=== PATIENT | male | born 1975 | race Caucasian/White ===

== ENCOUNTER 2018-06-26 20:45 | Inpatient (IN) ==
[2018-06-26 21:22] LABS: Bilirubin,Urine Negative (Negative); Blood,Urine Negative (Negative); Clarity,Urine Clear (Clear); Color,Urine Yellow (Yellow); Glucose,Urine (UA) Normal (Normal); Ketones,Urine Negative (Negative); Leukocyte Esterase,Urine Negative (Negative); Nitrite,Urine Negative (Negative); Protein,Urine Negative (Neg-Trace); Specific Gravity,Urine 1.005 (1.010-1.025); Urobilinogen,Urine Normal (Normal)
[2018-06-26 21:22] LABS: Basophils % 0.5 %; Eosinophils # 0.1 K/mcL (0.0-0.6); Eosinophils % 0.8 %; Hematocrit 43.5 % (37.5-50.1); Hemoglobin 14.3 g/dL (12.9-16.9); Immature Granulocytes % 0.4 % (0-4); Lymphocytes # 1.8 K/mcL (0.6-4.6); Lymphocytes % 22.9 %; Mean Corpuscular HGB Conc 32.9 g/dL (31.6-35.5); Mean Corpuscular Hemoglobin 31.2 pg (28.0-33.3); Mean Corpuscular Volume 94.8 fL (83.0-100.0); Mean Platelet Volume 9.7 fL (9.4-12.4); Monocytes # 0.6 K/mcL (0.0-1.3); Monocytes % 7.8 %; Neutrophils # 5.3 K/mcL (1.6-8.9); Platelet Count 221 K/mcL (140-400); Red Blood Count 4.59 M/mcL (4.19-5.50); Red Cell Distribution Width 13.2 % (11.5-14.5); Segmented Neutrophils % 67.6 %
--- NOTE | 2018-06-26 21:24 | Emergency Department Note ---
Disposition Clinical Impression: Suicidal ideation Disposition: Admitted As Inpatient Condition: Good Referrals: NONE,PCP [Primary Care Provider] - Forms: ED Satisfaction Letter Psych HPI - General Chief Complaint: ED Psychiatric Symptoms Stated Complaint: SI Time Seen by Provider: 06/26/18 20:47 Source: patient, EMS Mode of arrival: EMS Limitations: no limitations Nursing Notes Reviewed: Yes Vital Signs Reviewed: Yes - History of Present Illness HPI Narrative: 43-year-old male history of anxiety, depression presents for suicidal ideation. Reports he was here earlier today and lied to the psychiatric nurse that evaluated him and that he felt like taking his life. He states he left here and then decided life was not worth living. States that he has tried to kill himself before by ingesting Tylenol. He denies any ingestion currently. He reports being anxious and depressed. Denies any auditory or visual hallucinations. Denies any alcohol or drug use. Pt complaint: suicidal ideation Onset (ago): day(s) Duration: intermittent History of similar episodes: Yes Improves with: none Worsens with: none Context: significant life stressor Alleged intoxication: No Associated Psychiatric Symptoms: depression, suicidal ideation Traumatic symptoms: denies traumatic injury Treatments prior to arrival: none Self harm or harm to others: admits thoughts of self harm, has plan - Related Data Home Medications Medication Instructions Recorded Confirmed Atorvastatin [Lipitor] 10 mg PO HS 06/26/18 06/26/18 Brexpiprazole [Rexulti] 1 mg PO DAILY 06/26/18 06/26/18 Cholecalciferol (D-3) [Vitamin D] 1,000 units PO DAILY 06/26/18 06/26/18 Desvenlafaxine Fumarate 50 mg PO DAILY 06/26/18 06/26/18 [Desvenlafaxine Fumarate ER] Dextroamphetamine/Amphetamine 1 tab PO DAILY 06/26/18 06/26/18 [Adderall Xr 20 mg Capsule] Xanax 1 MG Tablet 1 mg PO TID 06/26/18 06/26/18 Previous Rx's Medication Instructions Recorded Albuterol Sulfate [Albuterol 0 puff IH Q6HR #1 hfa.aer.ad 06/16/18 Inhaler] Allergies Allergy/AdvReac Type Severity Reaction Status Date / Time AVOIDS IV DYE AdvReac Nausea Uncoded 06/26/18 14:28 All systems ED: reviewed and negative except as stated. Psychiatric: Reports: anxiety, depression, suicidal thoughts. Denies: homicidal thoughts, auditory hallucinations, visual hallucinations Past Medical History - Past Medical History Attestation: Yes The following information was validated with the patient. Source: patient Medical history: Reports: arthritis, cancer, GERD, migraine, renal disease Surgical history: Reports: appendectomy, cancer surgery, herniorrhaphy, other Psychiatric history: Reports: anxiety, ADHD, bipolar, depression, panic disorder, prior suicide attempt, other - Social History Smoking Status: Current every day smoker Smokeless Tobacco Status: No Alcohol use: Reports: none Drug use: Reports: none Physical Exam - General Limitations: no limitations General appearance: alert, in no apparent distress - Head Head exam: atraumatic, normocephalic, normal inspection - Eye Eye exam: Present: normal appearance - ENT ENT exam: normal exam - Neck Neck exam: Present: normal inspection - Chest Chest inspection: Present: normal inspection, symmetric chest wall rise - Respiratory Respiratory exam: Present: normal lung sounds bilaterally - Cardiovascular Cardiovascular exam: Present: regular rate, normal rhythm, normal heart sounds - Abdominal Exam Abdominal exam: Present: soft, Non-Tender. Absent: tenderness, distention, rigidity - Extremities Exam Extremities exam: Present: normal inspection, full ROM - Expanded Upper Extremity Exam Shoulder exam: Present: normal inspection, full ROM Arm exam: Present: normal inspection, full ROM Elbow exam: Present: normal inspection, full ROM Forearm/Wrist exam: Present: normal inspection, full ROM Hand exam: Present: normal inspection, full ROM - Expanded Lower Extremity Exam Hip/Pelvis exam: Present: normal inspection, full ROM Upper leg exam: Present: normal inspection, full ROM Knee exam: Present: normal inspection, full ROM Lower leg exam: Present: normal inspection, full ROM Ankle exam: Present: normal inspection, full ROM Foot/toe exam: Present: normal inspection, full ROM - Psychiatric Psychiatric exam: Present: depressed, suicidal ideation - Skin Skin exam: Present: warm, dry Course Course Narrative: Patient seen and examined. Vital signs reviewed. Plan for medical clearance for psychiatric evaluation. - Reevaluation(s) Reevaluation #1: Patient is medically cleared awaiting psychiatric evaluation. Time: 21:50 Vital Signs Temperature 98.5 F 06/26/18 20:48 Pulse Rate 83 06/26/18 20:48 Respiratory Rate 18 06/26/18 20:48 Blood Pressure 139/87 06/26/18 20:48 O2 Sat by Pulse Oximetry 99 06/26/18 20:48 Temperature 98.5 F 06/26/18 20:48 Pulse Rate 83 06/26/18 20:48 Respiratory Rate 18 06/26/18 20:48 Blood Pressure 139/87 06/26/18 20:48 O2 Sat by Pulse Oximetry 99 06/26/18 20:48 Oxygen Delivery Oxygen Delivery Room Air Psych - MDM Narrative Medical decision making narrative: 43-year-old male presenting due to suicidal ideation. Patient was evaluated earlier today. He was medically cleared and evaluated by psychiatry. He will be admitted to the psychiatric service at this time. - Lab Data Lab results reviewed: Yes I reviewed the patient's lab results. Result diagrams: 06/26/18 21:06 06/26/18 21:06 Lab Results 06/26/18 06/26/18 06/26/18 Range/Units 21:05 21:05 21:06 WBC 7.8 (4.3-11.1) K/mcL RBC 4.59 (4.19-5.50) M/mcL Hgb 14.3 (12.9-16.9) g/dL Hct 43.5 (37.5-50.1) % MCV 94.8 (83.0-100.0) fL MCH 31.2 (28.0-33.3) pg MCHC 32.9 (31.6-35.5) g/dL RDW 13.2 (11.5-14.5) % Plt Count 221 (140-400) K/mcL MPV 9.7 (9.4-12.4) fL Immature Gran % 0.4 (0-4) % Seg Neutrophils % 67.6 % Lymphocytes % 22.9 % Monocytes % 7.8 % Eosinophils % 0.8 % Basophils % 0.5 % Neutrophils # 5.3 (1.6-8.9) K/mcL Lymphocytes # 1.8 (0.6-4.6) K/mcL Monocytes # 0.6 (0.0-1.3) K/mcL Eosinophils # 0.1 (0.0-0.6) K/mcL Basophils # 0.0 (0.0-0.2) K/mcL Sodium (136-145) mEq/L Potassium (3.5-5.1) mEq/L Chloride (98-107) mEq/L Carbon Dioxide (23-29) mEq/L BUN (6-20) mg/dL Creatinine (0.70-1.30) mg/dL Est GFR ( Amer) (> 60) Est GFR (Non-Af Amer) (> 60) BUN/Creatinine Ratio (6-26) Glucose (70-105) mg/dL Calculated Osmolality (280-300) Calcium (8.6-10.3) mg/dL Urine Color Yellow (Yellow) Urine Clarity Clear (Clear) Urine pH 6.0 (5.0-8.0) pH Units Ur Specific [place] 1.005 L (1.010-1.025) Urine Protein Negative (Neg-Trace) mg/dL Urine Glucose (UA) Normal (Normal) mg/dL Urine Ketones Negative (Negative) mg/dL Urine Blood Negative (Negative) Urine Nitrite Negative (Negative) Urine Bilirubin Negative (Negative) Urine Urobilinogen Normal (Normal) mg/dL Ur Leukocyte Esterase Negative (Negative) Salicylates (15.0-30.0) mg/dL Urine Opiates Screen Negative (Kzsltu=665) ng/mL Acetaminophen (10-20) mcg/mL Ur Barbiturates Screen Negative (Ijpmdf=653) ng/mL Ur Phencyclidine Scrn Negative (Cutoff=25) ng/mL Ur Amphetamines Screen Negative (Fjibvg=7801) ng/mL U Benzodiazepines Scrn Negative (Vninzy=588) ng/mL Urine Cocaine Screen Negative (Cutoff= 300) ng/mL U Marijuana (THC) Screen Negative (Cutoff = 50) ng/mL Ur Drug Screen Interp See Below Ethyl Alcohol (Less than 10) mg/dL 06/26/18 Range/Units 21:06 WBC (4.3-11.1) K/mcL RBC (4.19-5.50) M/mcL Hgb (12.9-16.9) g/dL Hct (37.5-50.1) % MCV (83.0-100.0) fL MCH (28.0-33.3) pg MCHC (31.6-35.5) g/dL RDW (11.5-14.5) % Plt Count (140-400) K/mcL MPV (9.4-12.4) fL Immature Gran % (0-4) % Seg Neutrophils % % Lymphocytes % % Monocytes % % Eosinophils % % Basophils % % Neutrophils # (1.6-8.9) K/mcL Lymphocytes # (0.6-4.6) K/mcL Monocytes # (0.0-1.3) K/mcL Eosinophils # (0.0-0.6) K/mcL Basophils # (0.0-0.2) K/mcL Sodium 139 (136-145) mEq/L Potassium 3.7 (3.5-5.1) mEq/L Chloride 104 (98-107) mEq/L Carbon Dioxide 28 (23-29) mEq/L BUN 15 (6-20) mg/dL Creatinine 1.12 (0.70-1.30) mg/dL Est GFR ( Amer) > 60 (> 60) Est GFR (Non-Af Amer) > 60 (> 60) BUN/Creatinine Ratio 13 (6-26) Glucose 98 (70-105) mg/dL Calculated Osmolality 289 (280-300) Calcium 9.3 (8.6-10.3) mg/dL Urine Color (Yellow) Urine Clarity (Clear) Urine pH (5.0-8.0) pH Units Ur Specific [place] (1.010-1.025) Urine Protein (Neg-Trace) mg/dL Urine Glucose (UA) (Normal) mg/dL Urine Ketones (Negative) mg/dL Urine Blood (Negative) Urine Nitrite (Negative) Urine Bilirubin (Negative) Urine Urobilinogen (Normal) mg/dL Ur Leukocyte Esterase (Negative) Salicylates < 2.5 L (15.0-30.0) mg/dL Urine Opiates Screen (Zbvfqz=054) ng/mL Acetaminophen < 10 L (10-20) mcg/mL Ur Barbiturates Screen (Icesfz=393) ng/mL Ur Phencyclidine Scrn (Cutoff=25) ng/mL Ur Amphetamines Screen (Vjhskl=4965) ng/mL U Benzodiazepines Scrn (Vtyhae=133) ng/mL Urine Cocaine Screen (Cutoff= 300) ng/mL U Marijuana (THC) Screen (Cutoff = 50) ng/mL Ur Drug Screen Interp Ethyl Alcohol < 10 (Less than 10) mg/dL Psychiatric Medical Clearance - Medical Clearance Checklist Medical History: No Social History Section defined Current Vitals: Last Vital Signs Temp 98.5 F 06/26/18 20:48 Pulse 83 06/26/18 20:48 Resp 18 06/26/18 20:48 BP 139/87 06/26/18 20:48 Pulse Ox 99 06/26/18 20:48 Psychiatric Lab Panel: Drug Levels and Toxicity 06/26/18 06/26/18 21:05 21:06 Urine Opiates Screen Negative Acetaminophen < 10 L Ur Barbiturates Screen Negative Ur Phencyclidine Scrn Negative Ur Amphetamines Screen Negative U Benzodiazepines Scrn Negative Urine Cocaine Screen Negative U Marijuana (THC) Screen Negative Ethyl Alcohol < 10 Abnormal Labs: Abnormal lab results Ur Specific [place] 1.005 (1.010-1.025) L 06/26/18 21:05 Salicylates < 2.5 mg/dL (15.0-30.0) L 06/26/18 21:06 Acetaminophen < 10 mcg/mL (10-20) L 06/26/18 21:06 Statement of Medical Clearance: I have evaluated the patient, reviewed diagnostic information, and certify that the patient's medical condition is sufficiently stable that transfer to the psychiatric unit does not pose a significant risk of deterioration.
[2018-06-26 21:42] LABS: Acetaminophen < 10 mcg/mL (10-20); BUN/Creatinine Ratio 13 (6-26); Blood Urea Nitrogen 15 mg/dL (6-20); Calcium 9.3 mg/dL (8.6-10.3); Carbon Dioxide 28 mEq/L (23-29); Chloride 104 mEq/L (98-107); Ethanol < 10 mg/dL (Less than 10); Glucose 98 mg/dL (70-105); Osmolality,Calculated 289 (280-300); Potassium 3.7 mEq/L (3.5-5.1); Salicylate < 2.5 mg/dL (15.0-30.0); Sodium 139 mEq/L (136-145); eGFR For Non-African Americans > 60 (> 60)
[2018-06-26 21:43] LABS: Amphetamine Screen,Urine Negative ng/mL (Cutoff=1000); Barbiturate Screen,Urine Negative ng/mL (Cutoff=200); Benzodiazepines Screen,Urine Negative ng/mL (Cutoff=200); Cannabinoid Screen,Urine Negative ng/mL (Cutoff = 50); Cocaine Screen,Urine Negative ng/mL (Cutoff= 300); Opiate Screen,Urine Negative ng/mL (Cutoff=300); Phencyclidine Screen,Urine Negative ng/mL (Cutoff=25)
--- NOTE | 2018-06-26 21:51 | Emergency Department Note ---
Disposition Clinical Impression: Suicidal ideation Disposition: Still a Patient Referrals: NONE,PCP [Primary Care Provider] - Forms: ED Satisfaction Letter General Adult HPI - General Chief complaint: ED Psychiatric Symptoms Stated complaint: SI Time Seen by Provider: 06/26/18 20:47 Source: patient, EMS Mode of arrival: EMS Limitations: no limitations - History of Present Illness Pain Scale: 0 - Related Data Home Medications Medication Instructions Recorded Confirmed Atorvastatin [Lipitor] 10 mg PO HS 06/26/18 06/26/18 Brexpiprazole [Rexulti] 1 mg PO DAILY 06/26/18 06/26/18 Cholecalciferol (D-3) [Vitamin D] 1,000 units PO DAILY 06/26/18 06/26/18 Desvenlafaxine Fumarate 50 mg PO DAILY 06/26/18 06/26/18 [Desvenlafaxine Fumarate ER] Dextroamphetamine/Amphetamine 1 tab PO DAILY 06/26/18 06/26/18 [Adderall Xr 20 mg Capsule] Xanax 1 MG Tablet 1 mg PO TID 06/26/18 06/26/18 Previous Rx's Medication Instructions Recorded Albuterol Sulfate [Albuterol 0 puff IH Q6HR #1 hfa.aer.ad 06/16/18 Inhaler] Allergies Allergy/AdvReac Type Severity Reaction Status Date / Time AVOIDS IV DYE AdvReac Nausea Uncoded 06/26/18 14:28 Psychiatric: Reports: anxiety, depression, suicidal thoughts. Denies: homicidal thoughts, auditory hallucinations, visual hallucinations Past Medical History - Past Medical History Medical history: Reports: arthritis, cancer, GERD, migraine, renal disease Surgical history: Reports: appendectomy, cancer surgery, herniorrhaphy, other Psychiatric history: Reports: anxiety, ADHD, bipolar, depression, panic disorder, prior suicide attempt, other - Social History Smoking Status: Current every day smoker Smokeless Tobacco Status: No Alcohol use: Reports: none Drug use: Reports: none Physical Exam - General Limitations: no limitations General appearance: alert, in no apparent distress Course Vital Signs Temperature 98.5 F 06/26/18 20:48 Pulse Rate 83 06/26/18 20:48 Respiratory Rate 18 06/26/18 20:48 Blood Pressure 139/87 06/26/18 20:48 O2 Sat by Pulse Oximetry 99 06/26/18 20:48 Temperature 98.5 F 06/26/18 20:48 Pulse Rate 83 06/26/18 20:48 Respiratory Rate 18 06/26/18 20:48 Blood Pressure 139/87 06/26/18 20:48 O2 Sat by Pulse Oximetry 99 06/26/18 20:48 Oxygen Delivery Oxygen Delivery Room Air Medical Decision Making - Lab Data Result diagrams: 06/26/18 21:06 06/26/18 21:06 Lab Results 06/26/18 06/26/18 06/26/18 Range/Units 21:05 21:05 21:06 WBC 7.8 (4.3-11.1) K/mcL RBC 4.59 (4.19-5.50) M/mcL Hgb 14.3 (12.9-16.9) g/dL Hct 43.5 (37.5-50.1) % MCV 94.8 (83.0-100.0) fL MCH 31.2 (28.0-33.3) pg MCHC 32.9 (31.6-35.5) g/dL RDW 13.2 (11.5-14.5) % Plt Count 221 (140-400) K/mcL MPV 9.7 (9.4-12.4) fL Immature Gran % 0.4 (0-4) % Seg Neutrophils % 67.6 % Lymphocytes % 22.9 % Monocytes % 7.8 % Eosinophils % 0.8 % Basophils % 0.5 % Neutrophils # 5.3 (1.6-8.9) K/mcL Lymphocytes # 1.8 (0.6-4.6) K/mcL Monocytes # 0.6 (0.0-1.3) K/mcL Eosinophils # 0.1 (0.0-0.6) K/mcL Basophils # 0.0 (0.0-0.2) K/mcL Sodium (136-145) mEq/L Potassium (3.5-5.1) mEq/L Chloride (98-107) mEq/L Carbon Dioxide (23-29) mEq/L BUN (6-20) mg/dL Creatinine (0.70-1.30) mg/dL Est GFR ( Amer) (> 60) Est GFR (Non-Af Amer) (> 60) BUN/Creatinine Ratio (6-26) Glucose (70-105) mg/dL Calculated Osmolality (280-300) Calcium (8.6-10.3) mg/dL Urine Color Yellow (Yellow) Urine Clarity Clear (Clear) Urine pH 6.0 (5.0-8.0) pH Units Ur Specific [place] 1.005 L (1.010-1.025) Urine Protein Negative (Neg-Trace) mg/dL Urine Glucose (UA) Normal (Normal) mg/dL Urine Ketones Negative (Negative) mg/dL Urine Blood Negative (Negative) Urine Nitrite Negative (Negative) Urine Bilirubin Negative (Negative) Urine Urobilinogen Normal (Normal) mg/dL Ur Leukocyte Esterase Negative (Negative) Salicylates (15.0-30.0) mg/dL Urine Opiates Screen Negative (Mijnam=777) ng/mL Acetaminophen (10-20) mcg/mL Ur Barbiturates Screen Negative (Kkwroq=026) ng/mL Ur Phencyclidine Scrn Negative (Cutoff=25) ng/mL Ur Amphetamines Screen Negative (Vtcqbo=5523) ng/mL U Benzodiazepines Scrn Negative (Drakxa=782) ng/mL Urine Cocaine Screen Negative (Cutoff= 300) ng/mL U Marijuana (THC) Screen Negative (Cutoff = 50) ng/mL Ur Drug Screen Interp See Below Ethyl Alcohol (Less than 10) mg/dL 06/26/18 Range/Units 21:06 WBC (4.3-11.1) K/mcL RBC (4.19-5.50) M/mcL Hgb (12.9-16.9) g/dL Hct (37.5-50.1) % MCV (83.0-100.0) fL MCH (28.0-33.3) pg MCHC (31.6-35.5) g/dL RDW (11.5-14.5) % Plt Count (140-400) K/mcL MPV (9.4-12.4) fL Immature Gran % (0-4) % Seg Neutrophils % % Lymphocytes % % Monocytes % % Eosinophils % % Basophils % % Neutrophils # (1.6-8.9) K/mcL Lymphocytes # (0.6-4.6) K/mcL Monocytes # (0.0-1.3) K/mcL Eosinophils # (0.0-0.6) K/mcL Basophils # (0.0-0.2) K/mcL Sodium 139 (136-145) mEq/L Potassium 3.7 (3.5-5.1) mEq/L Chloride 104 (98-107) mEq/L Carbon Dioxide 28 (23-29) mEq/L BUN 15 (6-20) mg/dL Creatinine 1.12 (0.70-1.30) mg/dL Est GFR ( Amer) > 60 (> 60) Est GFR (Non-Af Amer) > 60 (> 60) BUN/Creatinine Ratio 13 (6-26) Glucose 98 (70-105) mg/dL Calculated Osmolality 289 (280-300) Calcium 9.3 (8.6-10.3) mg/dL Urine Color (Yellow) Urine Clarity (Clear) Urine pH (5.0-8.0) pH Units Ur Specific [place] (1.010-1.025) Urine Protein (Neg-Trace) mg/dL Urine Glucose (UA) (Normal) mg/dL Urine Ketones (Negative) mg/dL Urine Blood (Negative) Urine Nitrite (Negative) Urine Bilirubin (Negative) Urine Urobilinogen (Normal) mg/dL Ur Leukocyte Esterase (Negative) Salicylates < 2.5 L (15.0-30.0) mg/dL Urine Opiates Screen (Fppsse=921) ng/mL Acetaminophen < 10 L (10-20) mcg/mL Ur Barbiturates Screen (Jqvafv=105) ng/mL Ur Phencyclidine Scrn (Cutoff=25) ng/mL Ur Amphetamines Screen (Bwczkg=7158) ng/mL U Benzodiazepines Scrn (Gwewgy=294) ng/mL Urine Cocaine Screen (Cutoff= 300) ng/mL U Marijuana (THC) Screen (Cutoff = 50) ng/mL Ur Drug Screen Interp Ethyl Alcohol < 10 (Less than 10) mg/dL Attestation Statement - Attestation Attestation: I examined this patient and my medical decision-making was reviewed with the Resident Physician. I agree with the documented findings, disposition and treatment plan as described except to the extent set forth below. 43 year old male presents to the ED with complaints of SI and was initially evlauted about 6 hours ago of which he was cleared. Patinet state he was lying when he spoke to 1A earlier and really does want to take his own life now and has overdosed on tylenol with 120 tablets in the past but states he has not done that today. He has his bags packed at bedside expecting to stay. Medically cleared, 1A pending
[2018-06-26] MEDS ORDERED: *HR* LORazepam 1 MG TABLET PO PRN (23:40)
[2018-06-26] MEDS ORDERED: Mag Hydrox/Al Hydrox/Simeth 30 ML UDC PO PRN (23:40)
[2018-06-26] MEDS ORDERED: *HR* LORazepam 2 MG/ML VIAL IM PRN (23:40)
[2018-06-26] MEDS ORDERED: MOM Conc 10 ML UD.LIQ PO PRN (23:40)
[2018-06-26] MEDS ORDERED: Haloperidol Lactate 5 MG/ML VIAL IM PRN (23:40)
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
[2018-06-27] MEDS ORDERED: clonazePAM 1 MG TABLET PO PRN (10:16)
[2018-06-27] MEDS: Cholecalciferol (D-3) 1,000 UNIT TABLET PO SCH (11:40)
[2018-06-27] MEDS: BREXPIPRAZOLE 1 MG PO SCH (11:40)
[2018-06-27] MEDS: DESVENLAFAXINE 50 MG PO SCH (11:40)
[2018-06-27] MEDS: traZODone 50 MG TABLET PO PRN (20:35)
[2018-06-28] MEDS: Cholecalciferol (D-3) 1,000 UNIT TABLET PO SCH (09:15)
[2018-06-28] MEDS: BREXPIPRAZOLE 1 MG PO SCH (09:16)
[2018-06-28] MEDS: DESVENLAFAXINE 50 MG PO SCH (09:17)
[2018-06-28] MEDS: Ibuprofen 400 MG TABLET PO PRN (10:53)
--- NOTE | 2018-06-28 10:57 | Psychiatry Progress Note ---
Date of Encounter: 06/28/18 Time of Encounter: 10:51 Subjective Interval history: Client states his mood is starting to improve. Spent much of yesterday sleeping and still feels tired today. However, he did attend a group yesterday and has already gone to a group this morning. Eating well. Tolerating the antidepressants without side effects. Noncommittal as to whether he is still experiencing SI. "When I'm busy and around people I don't have it." States he is happy he came to the hospital "so I didn't do anything stupid." However, feels like he may not need an inpatient level of care much longer. Willing to go wherever staff find him housing but wants to stay in the area since his providers are here. Already linked with services. Likely discharge this week. Review of Systems Constitutional: Denies: fever, chills, weakness, weight change Eyes: Denies: eye pain, vision change Ears, Nose, Throat: Denies: ear pain, throat pain, dental pain, hearing loss, congestion Cardiovascular: Denies: chest pain, palpitations, dyspnea on exertion Respiratory: Denies: cough, dyspnea, wheezes Gastrointestinal: Denies: abdominal pain, nausea, vomiting, diarrhea, constipation Musculoskeletal: Denies: joint swelling, joint pain Neurological: Denies: headache, weakness, numbness, memory loss Psychiatric: Reports: depression, anxiety, abnormal sleep pattern, suicidal ideation, change in appetite, anhedonia, difficulty concentrating, hopelessness. Denies: homicidal ideation, auditory hallucinations, visual hallucinations, confusion, memory loss Results - Vital Signs Vital Signs: Temp Pulse Resp BP Pulse Ox 98.7 F 99 18 126/74 97 06/28/18 09:00 06/28/18 09:00 06/28/18 09:00 06/28/18 09:00 06/28/18 09:00 Assessment and Plan (1) Bipolar 2 disorder, major depressive episode Current visit: Yes Status: Chronic Plan: Continue hospitalization, Close observation, Suicide Precautions per unit protocol, Encourage participation in unit milieu, Group Therapy, Monitor sleep, Monitor appetite Risks, benefits, side effects, alternatives discussed w/pt: Yes Patient agreeable to treatment: Yes Consult Discharge Plan - Plan Referrals: [facility] [Outside] Psychiatry Exam - Constitutional Vitals: Temp Pulse Resp BP Pulse Ox 98.7 F 99 18 126/74 97 06/28/18 09:00 06/28/18 09:00 06/28/18 09:00 06/28/18 09:00 06/28/18 09:00 General appearance: disheveled - Musculoskeletal Gait: normal Station: relaxed Strength & Tone: normal for patient - Psychiatric Patient Orientation: Yes Person, Yes Time, Yes Place Level of alertness: Alert Behavior: calm, cooperative Psychomotor activity: Normal Eye Contact: Maintains Eye Contact Mood Description: Depressed Affect description: full range Speech Volume: Normal Speech pattern: normal rate, normal rhythm, normal tone, fluent, spontaneous Language & Vocabulary: consistent with education Thought Process: Linear Thought Content: Yes Suicidal ideation, No Homicidal ideation, No Overt delusions Perceptual Disturbances: No Auditory hallucinations, No Visual hallucinations Attention Span Ability: Capable of Focused Attention Memory Description: Grossly Intact Patient Reliability: Reliable Historian Fund of knowledge: Yes abstraction ability, Yes aware of current events Intelligence Estimate: Average Judgment: Fair Insight: Partial
[2018-06-28] MEDS: hydrOXYzine pamoate 25 MG CAPSULE PO PRN (21:12)
[2018-06-28] MEDS: traZODone 50 MG TABLET PO PRN (21:13)
[2018-06-29] MEDS: Cholecalciferol (D-3) 1,000 UNIT TABLET PO SCH (08:50)
[2018-06-29] MEDS: BREXPIPRAZOLE 1 MG PO SCH (08:50)
[2018-06-29] MEDS: DESVENLAFAXINE 50 MG PO SCH (08:51)
--- NOTE | 2018-06-29 12:01 | Psychiatry Progress Note ---
Date of Encounter: 06/29/18 Time of Encounter: 11:58 Subjective Interval history: Client states he is feeling down today as it is the anniversary of his mother's . Still has some fleeting SI but understands it takes time for the medications to work. States he is tired and that the antidepressants make him sleepy. Discussed how Vistaril and Trazodone are the more likely culprits and he will attempt to use these prns less to see if he feels more alert. Seems happy to be in the hospital. Discussed discharge planning. Will hopefully be evaluated by [facility]. Client states he was kicked out of staying here for bringing his prescription benzodiazepines onto the property but willing to go back if they will accept him. Review of Systems Constitutional: Denies: fever, chills, weakness, weight change Eyes: Denies: eye pain, vision change Ears, Nose, Throat: Denies: ear pain, throat pain, dental pain, hearing loss, congestion Cardiovascular: Denies: chest pain, palpitations, dyspnea on exertion Respiratory: Denies: cough, dyspnea, wheezes Gastrointestinal: Denies: abdominal pain, nausea, vomiting, diarrhea, constipation Musculoskeletal: Denies: joint swelling, joint pain Neurological: Denies: headache, weakness, numbness, memory loss Psychiatric: Reports: depression, anxiety, abnormal sleep pattern, suicidal ideation, change in appetite, anhedonia, difficulty concentrating, hopelessness. Denies: homicidal ideation, auditory hallucinations, visual hallucinations, confusion, memory loss Results - Vital Signs Vital Signs: Temp Pulse Resp BP Pulse Ox 98.1 F 89 20 130/72 96 06/29/18 09:00 06/29/18 09:00 06/29/18 09:00 06/29/18 09:00 06/28/18 21:00 Assessment and Plan (1) Bipolar 2 disorder, major depressive episode Current visit: Yes Status: Chronic Plan: Continue hospitalization, Close observation, Suicide Precautions per unit protocol, Encourage participation in unit milieu, Group Therapy, Monitor sleep, Monitor appetite Risks, benefits, side effects, alternatives discussed w/pt: Yes Patient agreeable to treatment: Yes Consult Discharge Plan - Plan Referrals: [facility] [Outside] Psychiatry Exam - Constitutional Vitals: Temp Pulse Resp BP Pulse Ox 98.1 F 89 20 130/72 96 06/29/18 09:00 06/29/18 09:00 06/29/18 09:00 06/29/18 09:00 06/28/18 21:00 General appearance: age & developmentally appropriate, well-groomed, well- nourished - Musculoskeletal Gait: normal Station: relaxed Strength & Tone: normal for patient - Psychiatric Patient Orientation: Yes Person, Yes Time, Yes Place Level of alertness: Alert Behavior: calm, cooperative Psychomotor activity: Normal Eye Contact: Maintains Eye Contact Mood Description: Depressed Affect description: full range Speech Volume: Normal Speech pattern: normal rate, normal rhythm, normal tone, fluent, spontaneous Language & Vocabulary: consistent with education Thought Process: Linear Thought Content: Yes Suicidal ideation, No Homicidal ideation, No Overt delusions Perceptual Disturbances: No Auditory hallucinations, No Visual hallucinations Attention Span Ability: Capable of Focused Attention Memory Description: Grossly Intact Patient Reliability: Questionable Historian Fund of knowledge: Yes abstraction ability, Yes aware of current events Intelligence Estimate: Average Judgment: Fair Insight: Partial
[2018-06-29] MEDS: Ibuprofen 400 MG TABLET PO PRN (18:03)
[2018-06-29] MEDS ORDERED: Acetaminophen 325 MG TABLET PO PRN (18:05)
[2018-06-29] MEDS: hydrOXYzine pamoate 25 MG CAPSULE PO PRN (22:38)
[2018-06-29] MEDS: traZODone 50 MG TABLET PO PRN (22:38)
[2018-06-30] MEDS: BREXPIPRAZOLE 1 MG PO SCH (08:42)
[2018-06-30] MEDS: Cholecalciferol (D-3) 1,000 UNIT TABLET PO SCH (08:42)
[2018-06-30] MEDS: DESVENLAFAXINE 50 MG PO SCH (08:42)
[2018-06-30 09:08] VITALS: BP 121/77
--- NOTE | 2018-06-30 09:11 | Discharge Summary ---
Date of Encounter: 06/30/18 Time of Encounter: 09:08 Diagnosis - Discharge Diagnosis (1) Bipolar 2 disorder, major depressive episode Status: Chronic Medications - Discharge Medications ALPRAZolam [Xanax 1 MG Tablet] 1 mg PO TID 06/26/18 [History] Atorvastatin [Lipitor] 10 mg PO HS 06/26/18 [History] Brexpiprazole [Rexulti] 1 mg PO DAILY 06/26/18 [History] Cholecalciferol (D-3) [Vitamin D] 1,000 units PO DAILY 06/26/18 [History] Desvenlafaxine Fumarate [Desvenlafaxine Fumarate ER] 50 mg PO DAILY 06/26/18 [History] Dextroamphetamine/Amphetamine [Adderall Xr 20 mg Capsule] 1 tab PO DAILY 06/26/18 [History] Albuterol Sulfate [Albuterol Inhaler] 2 puff IH Q6HR PRN 06/28/18 [History] Cholecalciferol (D-3) [Vitamin D] 1,000 unit PO DAILY 06/28/18 [History] Patient Taking Own Medication 0 each PO DAILY each 06/30/18 [Rx] Patient Taking Own Medication 0 each PO DAILY each 06/30/18 [Rx] Allergy/AdvReac Type Severity Reaction Status Date / Time AVOIDS IV DYE AdvReac Nausea Uncoded 06/26/18 14:28 Results Procedures and tests throughout hospitalization: Completed Lab Orders Category Date Time Status Acetaminophen Stat Lab 06/26/18 21:06 Completed Basic Metabolic Panel Stat Lab 06/26/18 21:06 Completed Complete Blood Count [HEME] Stat Lab 06/26/18 21:06 Completed Drug Screen, Urine [UCHEM] Stat Lab 06/26/18 21:05 Completed Ethanol Stat Lab 06/26/18 21:06 Completed Salicylate Stat Lab 06/26/18 21:06 Completed Urinalysis reflex Microscopic [URIN] Stat Lab 06/26/18 21:05 Completed Provider Date of admission: 06/27/18 11:35 Primary care physician: PCP NONE Consults: 06/27/18 00:39 Consult to Pastoral Services [CONS] Routine Comment: Discharging clinician: Sarah Tapia Psychiatry Exam - Constitutional Vitals: Temp Pulse Resp BP Pulse Ox 97.6 F 86 16 134/89 97 06/29/18 20:16 06/29/18 20:16 06/29/18 20:16 06/29/18 20:16 06/29/18 20:16 General appearance: age & developmentally appropriate, well-groomed, well- nourished - Musculoskeletal Gait: normal Station: relaxed Strength & Tone: normal for patient - Psychiatric Patient Orientation: Yes Person, Yes Time, Yes Place Level of alertness: Alert Behavior: calm, cooperative Psychomotor activity: Normal Eye Contact: Maintains Eye Contact Mood Description: Euthymic/stable Affect description: congruent with mood, full range Speech Volume: Normal Speech pattern: normal rate, normal rhythm, normal tone, fluent, spontaneous Language & Vocabulary: consistent with education Thought Process: Linear, Goal Oriented Thought Content: No Suicidal ideation, No Homicidal ideation, No Overt delusions Perceptual Disturbances: No Auditory hallucinations, No Visual hallucinations Attention Span Ability: Capable of Focused Attention Memory Description: Grossly Intact Patient Reliability: Questionable Historian Fund of knowledge: Yes abstraction ability, Yes aware of current events Intelligence Estimate: Average Judgment: Limited Insight: Partial Hospital Course Hospital course: Mr. Garcia is a 43 year old male who was admitted secondary to SI. Client had been staying in a temporary detention but the weather warmed to the point that the detention was closing and he had no where to go. Contacted family in [place] but states both his father and aunt rejected him. Recent break-up with girlfriend. Already linked with psychiatric services for Bipolar Disorder and just picked up two new medications prior to admission. Had thoughts of overdosing on them but presented to the ER instead. On the unit he was pleasant and engaged but highly manipulative. Told different stories to different people. Endorsed fleeting SI most days but seemed happy and well adjusted. Had recently been to [facility] but kicked out for bringing prescription benzodiazepines with the intent to sell on the premises. Staff contacted [facility] and they agreed to give client a second chance because yesterday all of their AOD clients were moved to a different facility. Client states today that he is happy to be given a second chance. Knows [facility] is a good fit for him because of all the services they provide. Today client is denying SI/HI/AH/VH. Bright, reactive, and future oriented. Happy abut discharge plan. Total time spent with client greater than 30 minutes. - Time Spent with Patient Total time spent providing and/or coordinating discharge services: Assessment and Plan - Patient/Caregiver Discharge Instructions Activity: resume usual activities as tolerated Diet: regular diet - Follow up Plan Follow up with: [facility] [Outside] Functional capacity at discharge: independent ambulation Overall status at discharge: Stable Disposition: Home, Self-Care Quality - Multiple Antipsychotics Patient discharged on 2 or more antipsychotic medications: No Procedures - Procedures Procedures: Medication Management, Crisis Stabilization, Supportive Therapy, Group Therapy
[2018-06-30] MEDS: hydrOXYzine pamoate 25 MG CAPSULE PO PRN (13:47)
== END 2018-06-30 15:20 | disposition home or self-care (01) | DRG 753 ==
LOC: EMEROOARM 20:45 → 1ANU 20:45
PROVIDERS: ADMIT Psychiatry & Neurology Psychiatry; ATTEND Psychiatry & Neurology Psychiatry

== ENCOUNTER 2021-02-18 13:04 | Inpatient (IN) ==
[2021-02-18 14:23] LABS: Bilirubin,Urine Negative (Negative); Blood,Urine Negative (Negative); Clarity,Urine Clear (Clear); Color,Urine Colorless (Yellow); Glucose,Urine (UA) 30 mg/dL (Normal); Ketones,Urine Negative (Negative); Leukocyte Esterase,Urine Negative (Negative); Nitrite,Urine Negative (Negative); Protein,Urine Negative (Neg-Trace); RBC,Urine 0-3 per hpf (0-3); Specific Gravity,Urine 1.011 (1.010-1.025); Urobilinogen,Urine Normal (Normal)
[2021-02-18 14:44] LABS: Basophils # 0.1 K/mcL (0.0-0.2); Basophils % 0.5 %; Eosinophils # 0.1 K/mcL (0.0-0.6); Eosinophils % 0.8 %; Hematocrit 46.9 % (37.5-50.1); Hemoglobin 16.1 g/dL (12.9-16.9); Immature Granulocytes % 0.5 % (0-4); Lymphocytes # 1.3 K/mcL (0.6-4.6); Lymphocytes % 13.3 %; Mean Corpuscular HGB Conc 34.3 g/dL (31.6-35.5); Mean Corpuscular Volume 96.1 fL (83.0-100.0); Monocytes # 0.6 K/mcL (0.0-1.3); Monocytes % 6.4 %; Neutrophils # 7.5 K/mcL (1.6-8.9); Platelet Count 174 K/mcL (140-400); Red Blood Count 4.88 M/mcL (4.19-5.50); Red Cell Distribution Width 12.9 % (11.5-14.5); Segmented Neutrophils % 78.5 %; White Blood Count 9.6 K/mcL (4.3-11.1)
[2021-02-18 14:59] LABS: Amphetamine Screen,Urine Negative ng/mL (Cutoff=1000); Barbiturate Screen,Urine Negative ng/mL (Cutoff=200); Benzodiazepines Screen,Urine Negative ng/mL (Cutoff=200); Cannabinoid Screen,Urine Negative ng/mL (Cutoff = 50); Cocaine Screen,Urine Negative ng/mL (Cutoff= 300); Opiate Screen,Urine Negative ng/mL (Cutoff=300); Phencyclidine Screen,Urine Negative ng/mL (Cutoff=25)
[2021-02-18 15:06] LABS: Acetaminophen < 10 mcg/mL (10-20); BUN/Creatinine Ratio 12 (6-26); Blood Urea Nitrogen 15 mg/dL (6-20); Calcium 9.3 mg/dL (8.6-10.3); Carbon Dioxide 26 mEq/L (23-29); Chloride 106 mEq/L (98-107); Chol/HDL Ratio 2.5 (0-4.9); Cholesterol 172 mg/dL (< 200); Ethanol < 10 mg/dL (Less than 10); Glucose 91 mg/dL (70-105); HDL Cholesterol 68 mg/dL (40-59); LDL Cholesterol,Calculated 87 mg/dL (< 100); Osmolality,Calculated 288 (280-300); Potassium 3.9 mEq/L (3.5-5.1); Salicylate < 2.5 mg/dL (15.0-30.0); Sodium 139 mEq/L (136-145); Triglycerides 83 mg/dL (< 150); eGFR For African Americans > 60 (> 60); eGFR For Non-African Americans > 60 (> 60)
[2021-02-18 16:34] LABS: Estimated Average Glucose 111 mg/dl; Hemoglobin A1C 5.5 %
[2021-02-18 18:43] LABS: Influenza A PCR Negative (Negative); Influenza B PCR Negative (Negative); Resp. Syncytial Virus PCR Negative (Negative)
[2021-02-18 18:56] LABS: SARS-CoV-2 by PCR (In House) Negative (Negative)
[2021-02-18] MEDS ORDERED: hydrOXYzine pamoate 25 MG CAPSULE PO PRN (19:10)
[2021-02-18] MEDS ORDERED: haloperidoL 5 MG TABLET PO PRN (19:10)
[2021-02-18] MEDS ORDERED: traZODone 50 MG TABLET PO PRN (19:10)
[2021-02-18] MEDS ORDERED: *HR* LORazepam 1 MG TABLET PO PRN (19:10)
[2021-02-18] MEDS ORDERED: *HR* LORazepam 2 MG/ML VIAL IM PRN (19:10)
[2021-02-18] MEDS ORDERED: Haloperidol Lactate 5 MG/ML VIAL IM PRN (19:10)
[2021-02-18] MEDS: Acetaminophen 325 MG TABLET PO PRN (21:33)
[2021-02-18] MEDS: QUEtiapine Fumarate 25 MG TABLET PO SCH (21:33)
[2021-02-18] MEDS: Topiramate 25 MG TABLET PO SCH (21:33)
[2021-02-19] MEDS: Acetaminophen 325 MG TABLET PO PRN ×2 (09:23→18:45)
[2021-02-19] MEDS: Divalproex (12 HR) 250 MG TABLET PO SCH ×2 (12:29→21:16)
[2021-02-19] MEDS ORDERED: Mag Hydrox/Al Hydrox/Simeth 30 ML UDC PO PRN (12:54)
[2021-02-19] MEDS ORDERED: MOM Conc 10 ML UD.LIQ PO PRN (12:54)
[2021-02-19] MEDS: Nicotine 2 MG GUM BC PRN (18:45)
[2021-02-19 20:50] VITALS: PULSE 70
[2021-02-19] MEDS: Topiramate 25 MG TABLET PO SCH (21:16)
[2021-02-19] MEDS: QUEtiapine Fumarate 25 MG TABLET PO SCH (21:16)
[2021-02-20] MEDS: Divalproex (12 HR) 250 MG TABLET PO SCH (08:31)
[2021-02-20 08:42] VITALS: BP 115/69; TEMP 98.7; O2SAT 97
[2021-02-20] MEDS: Nicotine 2 MG GUM BC PRN (09:39)
== END 2021-02-20 11:22 | disposition home or self-care (01) | DRG 753 ==
LOC: EMEROOARM 13:04 → 1ANU 19:16
PROVIDERS: ADMIT Psychiatry & Neurology Psychiatry; ATTEND Psychiatry & Neurology Psychiatry